=== PATIENT | male | born 2000 | race Caucasian/White ===

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

== ENCOUNTER 2021-02-15 21:20 | Emergency (ER) | payer MEDICAID, SELFPAY ==
[2021-02-15 21:21] VITALS: BP 150/101; PULSE 108; RESP 20; TEMP 37.1; O2SAT 99; BMI 34.3
--- NOTE | 2021-02-15 21:34 | XR_ITS ---
PROCEDURE INFORMATION: Exam: XR Left Wrist Exam date and time: 02/15/2021 9:34 PM Age: 21 years old Clinical indication: Injury or trauma; Fall; Work related; Blunt trauma (contusions or hematomas); Wrist; Left; Patient HX: Patient fell on concrete using a leaf blower working for [employer]. TECHNIQUE: Imaging protocol: XR Left wrist. Views: 3 or more views. COMPARISON: CR XR HAND LT MIN 3V 02/15/2021 9:33 PM FINDINGS: Bones/joints: Normal. Soft tissues: Normal. IMPRESSION: No acute findings.
--- NOTE | 2021-02-15 21:38 | XR_ITS ---
PROCEDURE INFORMATION: Exam: XR Left Forearm Exam date and time: 02/15/2021 9:38 PM Age: 21 years old Clinical indication: Injury or trauma; Fall; Work related; Blunt trauma (contusions or hematomas); Arm, lower; Left; Patient HX: Patient fell while using a leaf blower on concrete, patient works for [employer]. TECHNIQUE: Imaging protocol: XR Left forearm. Views: 2 views. COMPARISON: CR XR WRIST LT MIN 3V 02/15/2021 9:35 PM FINDINGS: Bones/joints: Normal. Soft tissues: Normal. IMPRESSION: No acute findings.
--- NOTE | 2021-02-15 21:39 | XR_ITS ---
PROCEDURE INFORMATION: Exam: XR Left Elbow Exam date and time: 02/15/2021 9:39 PM Age: 21 years old Clinical indication: Injury or trauma; Fall; Work related; Blunt trauma (contusions or hematomas); Elbow; Left; Patient HX: Patient fell while using a leaf blower on concrete. Patient works for [employer]. TECHNIQUE: Imaging protocol: XR Left elbow. Views: 3 or more views. COMPARISON: CR XR FOREARM LT 2V 02/15/2021 9:38 PM FINDINGS: Bones/joints: Normal. Soft tissues: Normal. IMPRESSION: No acute findings.
--- NOTE | 2021-02-15 21:39 | XR_ITS ---
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 Left hand pain. TECHNIQUE: Imaging protocol: XR Left hand. Views: 3 or more views. COMPARISON: No relevant prior studies available. FINDINGS: Bones/joints: Normal. Soft tissues: Normal. IMPRESSION: No acute findings.
--- NOTE | 2021-02-15 21:40 | HMH.EDFALL ---
ED Disposition Clinical Impression: Sprain of wrist, left Qualifiers: Encounter type: initial encounter Qualified Code(s): S63.502A - Unspecified sprain of left wrist, initial encounter Disposition: Home, Self-Care Condition on Discharge: Good Instructions: DI for Wrist Sprain Additional Instructions: ice and wear splint and see ortho Prescriptions: Meloxicam [Mobic 15 mg tab] 15 mg PO DAILY #10 tab Transmission Status: Pending to [id number] Referrals: Boyd Mesa [Primary Care Provider] - Gurinder Billingsley MD [Staff Physician] - Oh Medina JR, MD [Physician] - - Critical Care Critical Care Time: No Attestation: On 02/15/21, the high probability of a clinically significant, sudden or life threatening deterioration of the following system(s) required my full and direct attention, intervention and personal management. The time I documented below is in addition to time spent performing reported procedures but includes the following listed in this critical care notation. Medical Decision Making - Medical Records Medical records reviewed: Yes: I reviewed the patient's medical records. - Jeanmarie Inquiry Pt receiving controlled substance: No Vital Signs: 02/15/21 21:21 Temperature 98.7 F Temperature Source Oral Pulse Rate [Apical] 108 H Respiratory Rate 20 Blood Pressure [Right Arm] 150/101 H Blood Pressure Mean [Right Arm] 117 Blood Pressure Source [Right Arm] Automatic Cuff Blood Pressure Position [Right Arm] Sitting 02 Sat by Pulse Oximetry 99 Oxygen Delivery Method Room Air - Lab Data Lab results reviewed: Yes: I reviewed the patient's lab results. - Radiology Data #1 Image(s): Elbow, Forearm, Wrist, Hand Image Reviewed: Yes I have reviewed radiologist's interpretation Preliminary Findings: No Fracture Seen - CT Data CT Scan: Other (lt wrist ) Time Received: 23:[address] Reviewed: Yes: I have viewed the radiologist's interpretation Preliminary Findings: No Fracture Seen Medical Decision Narrative: sts and pain with dec rom but neg xrays - splint and see ortho- workman comp forms completed Fall HPI - General Chief Complaint: Fall Stated Complaint: [id number] fall left wrist inj Time Seen by Provider: 02/15/21 21:40 Mode of Arrival: Ambulatory Source of Information: Patient, Medical Record Limitations: No Limitations Description of Symptoms (Recalled from ER Triage Doc. by RN): Patient states that at roughly 1700 he tripped while working and landed on his left wrist. States that since the fall his wrist has been hurting up to his elbow. States that he did not hit his head. Denies any other injuries. - History of Present Illness HPI Narrative: tripped and fell at work with lt wrist injury complaint: fall Onset (ago): hour(s) Fall from: standing Fall witnessed: no Place fall occurred: work Loss of consciousness: none Prolonged down time: no Context: tripped/slipped Location of injury - extremities: Left: elbow, forearm, hand Severity: moderate Associated symptoms (after fall): denies - Related Data Previous Rx's Medication Instructions Recorded Albuterol Sulfate [Albuterol HFA 1 - 2 puffs IH Q4-6H PRN #1 inh 03/19/17 Inhaler] Ondansetron [Zofran 4mg ODT] 4 mg PO Q8H PRN #10 tab.rapdis 05/14/17 Nystatin [Nystatin Oint 100,000 1 applicatio TP BID 10 Days #1 tube 05/28/19 Units/GM 15GM] Nystatin [Nystatin Topical Powder 1 applicatio TP BID 10 Days #1 bot 05/28/19 30GM*] Meloxicam [Mobic 15 mg tab] 15 mg PO DAILY #10 tab 02/15/21 Allergies Allergy/AdvReac Type Severity Reaction Status Date / Time No Known Allergies Allergy Verified 05/02/17 16:07 [facility] History - Hepatitis A Screen Drug use history?: No High risk sexual behaviors?: No History of sexually transmitted infection?: No Currently employed?: No Childcare worker?: No Do you have indoor plumbing?: Yes Do you have electricity?: Yes Attestation stateme
--- NOTE | 2021-02-15 22:17 | CT_ITS ---
PROCEDURE INFORMATION: Exam: CT Left Upper Extremity Without Contrast, Wrist Exam date and time: 02/15/2021 10:17 PM Age: 21 years old Clinical indication: Pain; Wrist; Left; Additional info: Fall TECHNIQUE: Imaging protocol: CT of the Left upper extremity without contrast was performed. Exam focused on the wrist. 3D rendering (Not supervised by radiologist): MIP and/or 3D reconstructed images were created by the technologist. Radiation optimization: All CT scans at this facility use at least one of these dose optimization techniques: automated exposure control; mA and/or kV adjustment per patient size (includes targeted exams where dose is matched to clinical indication); or iterative reconstruction. COMPARISON: CR XR WRIST LT MIN 3V 02/15/2021 9:35 PM FINDINGS: Bones/joints: Examination is limited by technique. No visualized acute fracture or dislocation. Soft tissues: No radiopaque foreign body. IMPRESSION: Mildly limited examination without definite acute osseous abnormality. If there is concern for ligamentous or soft tissue injury, MRI would be more sensitive.
[2021-02-15 23:12] VITALS: BP 138/78; PULSE 78; RESP 20; TEMP 36.8; O2SAT 98
== END 2021-02-15 23:14 | disposition home or self-care (01) ==
PROVIDERS: Emergency Provider Emergency Medicine; PCP Pediatrics
DX: S63.502A Unspecified sprain of left wrist, initial encounter (principal); W01.0XXA Fall on same level from slipping, tripping and stumbling without subsequent striking against object, initial encounter; Y92.69 Other specified industrial and construction area as the place of occurrence of the external cause; Y99.0 Civilian activity done for income or pay
CPT/HCPCS: 73080; 73090; 73110; 73130; 73200; 99282

== ENCOUNTER 2021-08-14 13:39 | Emergency (ER) | payer MEDICAID, SELFPAY ==
[2021-08-14 13:39] VITALS: BP 163/87; PULSE 105; RESP 16; TEMP 36.8; O2SAT 98; BMI 34.2
[2021-08-14 14:00] VITALS: BP 117/62; PULSE 88; O2SAT 100
--- NOTE | 2021-08-14 14:28 | HMH.EDGENADL ---
ED Disposition Clinical Impression: Abscess of abdominal wall Disposition: Home, Self-Care Condition on Discharge: Fair Additional Instructions: Keflex and Bactrim as prescribed. Bristol as needed for pain. Follow-up with Dr. Hernandez, surgery, in his office Sunday or Sunday. Call tomorrow to make appointment. Return to the emergency department if worsening pain, fever, vomiting. Additional instructions for CONTROLLED SUBSTANCES: You have been prescribed a medication that is a controlled substance. Controlled substances include pain medications known as opiates and sedative nerve medications known as benzodiazepines. Tramadol, fioricet, and gabapentin are also controlled substances. Some common opiates include: Codeine (such as Tylenol #3) Hydrocodone (Vicodin, Lortab, Lorcet, Bristol) Oxycodone (Percocet, Percodan, Oxycodone, Oxy IR) Some common benzodiazepines include: Diazepam (Valium) Lorazepam (Ativan) Alprazolam (Xanax) Clonazepam (Klonopin) Oxazepam (Serax) All of these controlled substances are highly addictive and frequently abused. Misuse can and frequently does lead to addiction as well as overdose and . Medication should be stored in a locked cabinet or other secure storage unit. Do not store the medication in a motor vehicle. Short term supplies, 3 days or less, are prescribed because of the highly addictive nature of the medication. Any of the controlled substance medication NOT taken should be disposed of properly and NOT SAVED. The recommended method of disposing of unused medications is: Place the medicines in a sealable plastic bag. If the medicine is a solid, crush it or add water to dissolve it. Add something undesirable (cat litter, coffee grounds, etc.) Dispose of sealed bag in household trash Do not flush or pour unused medicines down a sink or drain. Controlled substances should not be shared, given away or sold. Because of the addictive nature and frequent abuse, these medications are sometimes stolen. These medications should be kept in a safe place where they cannot be stolen. Do not keep them in your car or purse. Lost or stolen prescriptions for controlled substances WILL NOT BE REFILLED in this emergency department, regardless of whether a police report was filed. Prescriptions: Hydrocod/Acet 5/325 mg [Bristol 5/325mg tablet] 1 tab PO Q6HP PRN #10 tab PRN Reason: Pain Transmission Status: Received by [id number] Sulfamethoxazole/Trimethoprim [Bactrim DS tablet] 1 each PO BID #20 tab Transmission Status: Received by [id number] cephALEXin [cephALEXin 500mg capsule*] 500 mg PO Q6H #40 cap Transmission Status: Received by [id number] Referrals: Boyd Mesa [Primary Care Provider] - - Critical Care Critical Care Time: No Attestation: On 08/14/21, the high probability of a clinically significant, sudden or life threatening deterioration of the following system(s) required my full and direct attention, intervention and personal management. The time I documented below is in addition to time spent performing reported procedures but includes the following listed in this critical care notation. Medical Decision Making - Medical Records Medical records reviewed: Yes: I reviewed the patient's medical records. MR Comment: Reviewed prior visit 05/28/2019, discharge from umbilicus. Also noted during that visit that the patient said he had a similar episode 2 years prior to that. - Jeanmarie Inquiry Pt receiving controlled substance: Yes Jeanmarie was queried for this patient: Yes Risks and benefits of using a controlled substance: were discussed with pt by me Vital Signs: 08/14/21 13:39 08/14/21 14:00 08/14/21 17:31 Temperature 98.3 F Temperature Source Oral Pulse Rate 88 78 Pulse Rate [Radial] 105 H Respiratory Rate 16 18 Blood Pressure 117/62 128/67 Blood Pressure [Right Arm] 163/87 H Blood Pressure Mean 80 89
--- NOTE | 2021-08-14 14:33 | CT_ITS ---
PROCEDURE INFORMATION: Exam: CT Abdomen And Pelvis With Contrast Exam date and time: 08/14/2021 2:44 PM Age: 21 years old Clinical indication: Mass, lump, or swelling; Periumbilical; Additional info: Abdominal wall abscess// umbilical area TECHNIQUE: Imaging protocol: Computed tomography of the abdomen and pelvis with contrast. Radiation optimization: All CT scans at this facility use at least one of these dose optimization techniques: automated exposure control; mA and/or kV adjustment per patient size (includes targeted exams where dose is matched to clinical indication); or iterative reconstruction. Contrast material: ISOVUE; Contrast volume: 75 ml; Contrast route: IV; COMPARISON: No relevant prior studies available. FINDINGS: Liver: Normal. No mass. Gallbladder and bile ducts: Normal. No calcified stones. No ductal dilation. Pancreas: Normal. No ductal dilation. Spleen: Normal. No splenomegaly. Adrenal glands: Normal. No mass. Kidneys and ureters: Normal. No hydronephrosis. Stomach and bowel: Unremarkable. No obstruction. No mucosal thickening. Appendix: No evidence of appendicitis. Intraperitoneal space: Unremarkable. No free air. No significant fluid collection. Vasculature: Unremarkable. No abdominal aortic aneurysm. Lymph nodes: Nonspecific bilateral inguinal lymph nodes. Urinary bladder: Unremarkable as visualized. Reproductive: Unremarkable as visualized. Bones/joints: Unremarkable. No acute fracture. Soft tissues: There is stranding of the subcutaneous fatty tissue in the periumbilical region. There is no evidence of a ventral wall defect. 3.7 cm by 2 cm low-density collection deep to the umbilicus. Rim enhancement is demonstrated best on sagittal and coronal imaging imaging sequences.The appearance is suggestive of abscess formation. Sagittal images demonstrate portions of the median umbilical ligament just deep to the rectus abdominus muscle. The possibility of infected urachal cyst should be considered. IMPRESSION: 3.7 cm x 2 cm low-density collection deep to the umbilicus. Peripheral rim enhancement with associated stranding of the periumbilical fatty tissues. Findings suggestive of abscess formation. The possibility of an infected urachal cyst should also be considered.
[2021-08-14 14:40] LABS: Basophils # 0.2 K/mm3 (0-0.2); Basophils % 1.5 % (0.1-2.0); Chloride 104 mmol/L (98-107); Eosinophils # 0.3 K/mm3 (0.0-0.4); Eosinophils % 2.4 % (0.1-12.0); Hematocrit 43.9 % (42.0-52.0); Hemoglobin 14.9 g/dL (14.1-18.0); Lymphocytes # 2.3 K/mm3 (0.7-4.5); Lymphocytes % 17.2 % (10-50); Mean Corpuscular HGB Conc 33.9 g/dL (31.8-35.4); Mean Corpuscular Volume 91.6 fl (80-94); Mean Platelet Volume 8.6 fl (7.4-10.4); Monocytes % 7.3 % (1.7-9.3); Neutrophils # 9.4 K/mm3 (1.8-7.8); Neutrophils % 71.5 % (37.0-80.0); Platelet Count 245 K/mm3 (142-424); Red Blood Count 4.79 M/mm3 (4.60-6.20); Sodium 139 mmol/L (136-145); White Blood Count 13.2 K/mm3 (4.8-10.8)
[2021-08-14 14:43] LABS: Lactic Acid 0.9 mmol/L (0.7-2.1)
[2021-08-14 15:13] LABS: Blood Urea Nitrogen 10 mg/dl (9-20); Creatinine Clearance Estimated 244 mL/min (50-200); Estimated Glomerular Filt Rate 122 ml/min (>60); GFR (African American) 148 ML/MIN (>60)
[2021-08-14 15:14] LABS: Alanine Aminotransferase 31 U/L (12-78); Albumin Level 4.4 g/dl (3.5-5.0); Albumin/Globulin Ratio 1.4 (1.1-1.8); Alkaline Phosphatase 78 U/L (38-126); Aspartate Amino Transferase 36 U/L (17-59); Carbon Dioxide 27 mmol/L (22.0-30.0); Globulin 3.1 g/dL (1.3-3.2); Total Protein,Serum 7.5 g/dl (6.3-8.2)
[2021-08-14 15:20] LABS: Calcium 9.1 mg/dl (8.4-10.2); Glucose 105 mg/dl (74-100)
[2021-08-14 16:54] LABS: Microscopic, Urine URINE MICROSCOPIC (MICROSCOPIC)
[2021-08-14 17:03] LABS: Appearance,Urine CLEAR (Clear); Bilirubin,Urine Negative (Negative); Blood, Urine Negative (Negative); Color,Urine YELLOW (Yellow); Glucose,Urine (UA) Negative (Negative); Ketones,Urine Negative (Negative); Leukocyte Esterase,Urine Negative (Negative); Nitrate,Urine Negative (Negative); PH,Urine 7.5 (5.0-8.5); Protein,Urine Negative (Negative); Specific Gravity, Urine 1.015 (1.005-1.030); Urobilinogen,Urine 0.2 EU/dl (0.2)
--- NOTE | 2021-08-14 17:14 | PC.NURSE ---
paged dr newby
--- NOTE | 2021-08-14 17:16 | PC.NURSE ---
GLORIA JORDAN on phone with LOPEZ
[2021-08-14 17:21] LABS: Bacteria,Urine Trace /lpf; Squamous Epithelial Cell,Urine Occasional #/hpf (0-5); WBC,Urine Occasional #/hpf (0-3)
[2021-08-14 17:31] VITALS: BP 128/67; PULSE 78; RESP 18; O2SAT 99
--- NOTE | 2021-08-14 18:37 | PC.NURSE ---
mother at bedside pt and mother updated on plan of care
[2021-08-14 20:00] VITALS: BP 150/82; PULSE 78; RESP 18; TEMP 37.2; O2SAT 99
== END 2021-08-14 20:00 | disposition home or self-care (01) ==
PROVIDERS: Emergency Provider Emergency Medicine; PCP Pediatrics
DX: L02.211 Cutaneous abscess of abdominal wall (principal)
CPT/HCPCS: 74177; 80053; 81001; 83605; 85025; 96365; 96366; 96375; 99284; J2405; J3370; Q9967

== ENCOUNTER → 2021-08-15 13:33 | Outpatient (CLI) | payer MEDICAID, SELFPAY | PROVIDERS: PCP Pediatrics; Visit Provider Surgery | DX: Z01.812 Encounter for preprocedural laboratory examination (principal); Z20.822 Contact with and (suspected) exposure to COVID-19; L02.211 Cutaneous abscess of abdominal wall | CPT/HCPCS: C9803; U0003; U0005 ==

== ENCOUNTER 2021-08-16 06:03 | Day surgery (SDC) | payer MEDICAID, SELFPAY ==
[2021-08-16] VITALS (12 sets, daily range): BP systolic 128–154; BP diastolic 69–84; PULSE 69–78; RESP 12–20; TEMP 36.3–36.5; O2SAT 93–100; BMI 35.9
--- NOTE | 2021-08-16 07:49 | HMH.ANESCL ---
[facility] Anesthesia Checklist - Structural Data Admitted From: Home Planned Operative Procedure/s: i/d umbilical abcess Consent for Planned Operative Procedure(s) Verified: Yes - Additional verifications Anesthesia Reactions: No Hx Blood Transfusions: No Blood Transfusion Reaction: No - Airway Assessment C-Spine Mobility Assessed: Yes TMJ Mobility Assessed: Yes Dentition: Good Dentition - Neurological Assessment Level of Consciousness: Awake, Alert, Appropriate - Anesthesia Plan Anesthesia Risk discussed: Yes Anesthesia Plan: Verified ASA Class: II Anesthesia Type: General [facility] History I have reviewed the patient's past medical history: Yes Medical History: Denies:: Cancer, Diabetes Mellitus Type 1, Diabetes Mellitus Type 2, MRSA, Seizures *Have you ever received a pneumonia vaccine?: No *Have you received a flu vaccine this season?: No Other Medical History: Denies: Blood Transfusion Reaction Anesthesia experience/problems:: none Laterality Cases: Bilateral: Myringotomy (Ear Tubes), Tonsillectomy Amputation: No Fractures: No - *Social History Last grade of school completed: High school graduate Smoking Status: Never smoker Tobacco Type: cigarettes Alcohol Intake: current Alcohol Intake Frequency:: holidays/special occasions only Substance Use Type: marijuana Last Used Substance: days (ago) *Occupational Status:: employed Housing: house Household Members: family *Travel in the last 8 weeks: None Family Hx:: No significant family history
--- NOTE | 2021-08-16 08:10 | P.OP_ITS ---
Date of procedure: 08/16/21 Pre-op Diagnosis:: Possible umbilical abscess Post-op Diagnosis:: Same Procedure performed:: Debridement of tissue at the umbilicus Surgeon:: Tez Hernandez MD MANAGER MARKETING:: Tru Washington Anesthesia: LMA Estimated blood loss (mL): 5 Clinical Note:: Patient is a 21-year-old male. He states that about 4 years ago he had some irritation at the umbilical area. It was felt that this may be a yeast infection . This was treated topically. Has not had any problems until recently. Several days ago he developed some burning pain at the umbilical area and periumbilical area. It was worse with movement. He was seen in the emergency department yesterday. He was found to have some significant discomfort in the periumbilical location. He underwent CT scan which revealed findings consistent with umbilical abscess with inflammatory changes. It was felt that this could be a urachal cyst. He was started on antibiotics and arr angements were made for outpatient surgical evaluation. Overnight he did have some drainage from the area. Operative findings:: Consistent with inflamed subcutaneous cyst Operative note:: Consent was obtained. Patient was taken to the operating room. General anesthesia was induced via LMA. Area was prepped and draped in the standard surgical fashion. Examination of the umbilical area revealed some rather prominent tissue with granulation in the deep umbilicus. Initially 18-gauge needle was inserted in this area to see if any residual fluid was able to be aspirated. There was no residual fluid. Elliptical incision was made around this. There was an area which was somewhat excoriated where he likely had drainage. This was probed. There was no evidence of any fluid or pus at this location. Therefore limited elliptical incision was made around the area of prominent inflamed tissue. Underlying this there were findings resembling pilonidal cyst. This was debrided using Metzenbaum dissection. This is consistent with inflamed granulation tissue. This was removed in a piecemeal fashion using Metzenbaum and sharp dissection. The wound was thoroughly probed. There was no evidence of any residual fluid collection. It was probed down to the fascia. The cavity was then debrided with a small curette. Wound was thoroughly irrigated. Local anesthetic was infiltrated. Wound was partially closed with several interrupted 3-0 chromic sutures. Clean dry sterile dressing was applied. Plan will be to change the dressing at least daily with sterile gauze for any drainage. He is to return to the office in 1 week. Likely will plan for a follow-up CT scan in several weeks to reassess the area. There is a possibility of recurrence as this seems to resemble findings and etiology consistent with pilonidal cyst although in the umbilical area. Condition: stable Disposition: PACU Specimens:: Debrided tissue Complications:: Not immediately apparent
--- NOTE | 2021-08-16 08:13 | P.PN_ITS ---
[facility] Anesthesia Record Part I Intake, IV Amount: 1,200 Estimated blood loss (mL): 0 Urine output (mL): 0 Blood Pressure: 144/72 SaO2: 95 Pulse Rate: 75 Respiratory Rate: 12 Temperature: 97.7 F Patient is:: Awake, Stable Stable to PACU at:: 08:10
--- NOTE | 2021-08-16 08:45 | SUR.PHASEI ---
0838 called and provided detailed report to Jonathan Renae RN 0840 transported via stretcher. vital signs stable. denies pain. left pt in stable condition with Jonathan Renae RN at bedside.
--- NOTE | 2021-08-17 09:39 | P.PN_ITS ---
[facility] Anesthesia Record Part II Discharge Time: 08:40 Destination: Home PACU nurse assessment reviewed?: Yes Patient Condition:: Good Anesthesia Complications:: None Swallowing reflex intact?: Yes Cyanosis?: No Blood Pressure: 149/80 Pulse Rate: 73 Temperature: 97.4 F Mental Status: Alert & Oriented Pain level:: 0 Nausea and/or vomitting:: None Intake, IV Amount: 0
[2021-08-17 09:40] VITALS: BP 149/80; PULSE 73; TEMP 36.3
== END 2021-08-16 09:35 | disposition home or self-care (01) ==
LOC: OR 06:04
PROVIDERS: PCP Pediatrics; Visit Provider Surgery
PROC: (CPT 11000; principal; 2021-08-16 07:30)
DX: L05.91 Pilonidal cyst without abscess (principal); L72.8 Other follicular cysts of the skin and subcutaneous tissue; Z79.899 Other long term (current) drug therapy
CPT/HCPCS: 11000; 96374; J2405

== ENCOUNTER 2022-06-26 08:33 | Emergency (ER) | payer MEDICAID, SELFPAY ==
[2022-06-26 08:35] VITALS: BP 121/42; PULSE 90; RESP 17; TEMP 36.8; O2SAT 98; BMI 33.3
--- NOTE | 2022-06-26 08:40 | PC.NURSE ---
DR LEONE AT BEDSIDE
--- NOTE | 2022-06-26 08:42 | PC.NURSE ---
GLORIA JORDAN at for pt prashanthal
--- NOTE | 2022-06-26 08:46 | CT_ITS ---
FINAL REPORT TECHNIQUE: After the administration of oral and intravenous contrast, axial images were obtained through the abdomen and pelvis by computed tomography. The study was performed with techniques to keep radiation dose as low as reasonably achievable, (ALARA). Individual dose reduction techniques using automated exposure control or adjustment of mA and/or kV according to the patient's size were employed. CLINICAL HISTORY: Mid abdominal pain COMPARISON: 08/14/2021 FINDINGS: Abdomen: The lung bases are clear. The liver parenchyma is homogeneous. The gallbladder is present. The spleen, pancreas, adrenals and kidneys appear unremarkable. The aorta is normal in caliber. Again seen is inflammatory reaction deep to the umbilicus in the anterior abdominal wall. This appears to have improved as compared to the prior exam. Central low-attenuation has improved. This focus measures 3.4 x 1.8 cm. No intrapelvic extension is seen. Pelvis: The appendix is normal. The urinary bladder is unremarkable. There is no free fluid or adenopathy. IMPRESSION: Redemonstration of inflammatory reaction deep to the umbilicus which has improved compared to the prior exam and may be related to resolving abscess. Reviewed, Interpreted and Dictated by Vamshi Domingo MD Transcribed by Yvette Sandoval Authenticated and [facility]
--- NOTE | 2022-06-26 08:48 | HMH.EDGENADL ---
Discharge Plan Disposition Patient Disposition: Home, Self-Care Prescriptions Prescriptions: New doxycycline hyclate 100 mg capsule 100 mg PO BID 14 Days Qty: 28 0RF hydrocodone-acetaminophen 5-325 mg tablet 1 tab PO Q6H PRN (Reason: pain) Qty: 10 0RF No Action sulfamethoxazole-trimethoprim 1 EACH tablet 1 each PO BID cephalexin 500 MG capsule 500 mg PO Q6H Referrals Follow up/Referrals: Boyd Mesa [Primary Care Provider] - See instructions Activity Restrictions/Add. Instructions Additional Instructions/Restrictions: Avoid exertion. Apply warm compresses to the affected area 4-5 times daily gently cleanse the umbilicus with half water half peroxide and apply antibiotic ointment. Return for worsening pain swelling or other concerns. Clinical Impressions Clinical Impression: Abdominal wall cellulitis Stand Alone Forms Stand Alone Forms: Work/School Release Instructions Patient Instructions: DI for Acute Abdominal Pain Discharge ED Provider: David De La Fuente General Adult HPI General Chief complaint: Abdominal Pain Stated complaint: stomach pain Time Seen by Provider: 06/26/22 08:40 History of Present Illness HPI narrative: The patient presents with a 5-day history of abdominal pain he describes pain as mild to moderate worse with movement. He denies associated fever, vomiting or diarrhea. In July 2021 he had an abdominal wall abscess requiring surgical incision and drainage and he states this feels similar to the symptoms he experienced at that time although with this episode there is been no drainage from the umbilicus as he previously experienced. Related Data Home Medications Medication Instructions Recorded Confirmed cephalexin 500 mg capsule 500 mg PO Q6H Infection 08/16/21 08/23/21 sulfamethoxazole 800 1 each PO BID Infection 08/16/21 08/23/21 mg-trimethoprim 160 mg tablet Previous Rx's Medication Instructions Recorded doxycycline hyclate 100 mg capsule 100 mg PO BID 14 days #28 caps 06/26/22 hydrocodone 5 mg-acetaminophen 325 1 tab PO Q6H PRN pain #10 tabs 06/26/22 mg tablet Allergies Allergy/AdvReac Type Severity Reaction Status Date / Time No Known Allergies Allergy Verified 08/23/21 10:05 [facility] Disclaimer: The information contained in this section may have been updated after the patient was seen, as this information can be updated by other users. Medical History (Updated 06/26/22 @ 11:17 by David De La Fuente MD) No significant past medical history Family History (Updated 06/26/22 @ 09:04 by Key Brock RN) Other No significant family history Social History (Updated 06/26/22 @ 09:04 by Key Brock RN) Smoking Status: Never smoker second hand exposure: No alcohol intake: current substance use type: marijuana current occupational status: employed Travel in the last 8 weeks: None household members: family housing: house current occupation: [employer] current occupational exposures/hazards: Yes ROS Obtained: Yes All systems reviewed & no additional complaints except as documented Physical Exam General General appearance: alert and in no apparent distress Head Head exam: atraumatic, normocephalic and normal inspection Eye Eye exam: Present normal appearance, PERRL and EOMI ENT ENT exam: Present normal exam, normal oropharynx, mucous membranes moist, TM's normal bilaterally and normal external ear exam Neck Neck exam: Present normal inspection, full ROM and trachea midline; Absent meningismus or lymphadenopathy Chest Chest inspection: Present normal inspection and symmetric chest wall rise; Absent tenderness Respiratory Respiratory exam: Present normal lung sounds bilaterally; Absent respiratory distress Cardiovascular Cardiovascular exam: Present regular rate and normal rhythm; Absent JVD Abdominal Exam Abdominal exam: Present tenderness (There is mild tenderness in the supraumbilical region) E
[2022-06-26 08:51] LABS: Microscopic, Urine URINE MICROSCOPIC (MICROSCOPIC)
[2022-06-26 09:00] LABS: Appearance,Urine CLEAR (Clear); Bilirubin,Urine Negative (Negative); Blood, Urine Negative (Negative); Color,Urine YELLOW (Yellow); Glucose,Urine (UA) Negative (Negative); Ketones,Urine Negative (Negative); Leukocyte Esterase,Urine Negative (Negative); Nitrate,Urine Negative (Negative); Protein,Urine Negative (Negative); Specific Gravity, Urine 1.025 (1.005-1.030); Urobilinogen,Urine 0.2 EU/dl (0.2)
[2022-06-26 09:02] LABS: Basophils # 0.1 K/mm3 (0-0.2); Basophils % 0.5 % (0.1-2.0); Eosinophils # 0.3 K/mm3 (0.0-0.4); Eosinophils % 2.7 % (0.1-12.0); Hematocrit 45.8 % (42.0-52.0); Hemoglobin 15.3 g/dL (14.1-18.0); Lymphocytes # 2.1 K/mm3 (0.7-4.5); Lymphocytes % 18.2 % (10-50); Mean Corpuscular HGB Conc 33.3 g/dL (31.8-35.4); Mean Corpuscular Hemoglobin 30.1 pg (27.0-31.2); Mean Corpuscular Volume 90.3 fl (80-94); Mean Platelet Volume 7.8 fl (7.4-10.4); Monocytes # 0.7 K/mm3 (0.1-1.0); Monocytes % 6.1 % (1.7-9.3); Neutrophils # 8.6 K/mm3 (1.8-7.8); Neutrophils % 72.5 % (37.0-80.0); Platelet Count 265 K/mm3 (142-424); Red Blood Count 5.07 M/mm3 (4.60-6.20); Red Cell Distribution Width 12.6 % (11.5-17.5); White Blood Count 11.8 K/mm3 (4.8-10.8)
[2022-06-26 09:12] LABS: Chloride 103 mmol/L (98-107); Potassium 4.4 mmoL/L (3.5-5.1); Sodium 139 mmol/L (136-145)
[2022-06-26 09:15] LABS: Alanine Aminotransferase 31 U/L (12-78); Albumin Level 4.5 g/dl (3.5-5.0); Albumin/Globulin Ratio 1.4 (1.1-1.8); Alkaline Phosphatase 73 U/L (38-126); Anion Gap 11.4 mEq/L (5-15); Aspartate Amino Transferase 28 U/L (17-59); Bilirubin,Total 0.4 mg/dl (0.2-1.3); Blood Urea Nitrogen 14 mg/dl (9-20); Carbon Dioxide 29 mmol/L (22.0-30.0); Creatinine Clearance Estimated 242 mL/min (50-200); Estimated Glomerular Filt Rate 121 ml/min (>60); GFR (African American) 146 ML/MIN (>60); Globulin 3.3 g/dL (1.3-3.2); Glucose 98 mg/dl (74-100); Lipase 84 U/L (23-300); Total Protein,Serum 7.8 g/dl (6.3-8.2)
--- NOTE | 2022-06-26 09:18 | PC.NURSE ---
VERONIKA Craig called radiology to let them know about CT scan order
[2022-06-26 09:21] LABS: Bacteria,Urine Trace /lpf; Squamous Epithelial Cell,Urine Occasional #/hpf (0-5)
--- NOTE | 2022-06-26 09:23 | PC.NURSE ---
PT UPDATED AT THIS TIME. CALL LIGHT WITHIN REACH. NO NEEDS VOICED
--- NOTE | 2022-06-26 09:39 | PC.NURSE ---
pt to ct at this time
--- NOTE | 2022-06-26 09:48 | PC.NURSE ---
PT RETURNED FROM CT
[2022-06-26 10:00] VITALS: BP 112/67; PULSE 74; O2SAT 97
--- NOTE | 2022-06-26 10:02 | PC.NURSE ---
DR LEONE AT BEDSIDE TO UPDATE PT AND FAMILY
[2022-06-26 10:30] VITALS: BP 119/59; PULSE 86; O2SAT 98
--- NOTE | 2022-06-26 10:41 | PC.NURSE ---
contacted rad to check on status of CT report.
--- NOTE | 2022-06-26 10:57 | PC.NURSE ---
ROUNDED ON PT, UPDATED ON POC. NO NEEDS AT THIS TIME
[2022-06-26 11:00] VITALS: BP 113/69; PULSE 78; O2SAT 98
--- NOTE | 2022-06-26 11:04 | PC.NURSE ---
Paged Dr. Hernandez to call ER MD lucia
--- NOTE | 2022-06-26 11:06 | PC.NURSE ---
DR LEONE AT BEDSIDE TO UPDATE PT
--- NOTE | 2022-06-26 11:14 | PC.NURSE ---
Dr. De La Fuente speaking with Dr. Hernandez
[2022-06-26 11:24] VITALS: BP 113/69; PULSE 78; RESP 17; TEMP 36.8; O2SAT 98
== END 2022-06-26 11:25 | disposition home or self-care (01) ==
PROVIDERS: Emergency Provider Emergency Medicine; PCP Pediatrics
DX: L03.311 Cellulitis of abdominal wall (principal); R10.9 Unspecified abdominal pain
CPT/HCPCS: 74177; 80053; 81001; 83690; 85025; 99284; 99285; Q9967

== ENCOUNTER → 2022-06-29 09:23 | Outpatient (CLI) | payer MEDICAID, SELFPAY ==
[2022-06-29 09:48] LABS: Basophils % 0.5 % (0.1-2.0); Eosinophils # 0.2 K/mm3 (0.0-0.4); Eosinophils % 2.8 % (0.1-12.0); Hemoglobin 14.3 g/dL (14.1-18.0); Lymphocytes % 22.7 % (10-50); Mean Corpuscular HGB Conc 32.4 g/dL (31.8-35.4); Mean Corpuscular Hemoglobin 29.9 pg (27.0-31.2); Mean Corpuscular Volume 92.1 fl (80-94); Mean Platelet Volume 7.4 fl (7.4-10.4); Monocytes # 0.6 K/mm3 (0.1-1.0); Monocytes % 7.4 % (1.7-9.3); Neutrophils # 5.7 K/mm3 (1.8-7.8); Neutrophils % 66.6 % (37.0-80.0); Platelet Count 236 K/mm3 (142-424); Red Blood Count 4.78 M/mm3 (4.60-6.20); Red Cell Distribution Width 12.5 % (11.5-17.5); White Blood Count 8.6 K/mm3 (4.8-10.8)
[2022-06-29 10:31] LABS: Chloride 97 mmol/L (98-107)
[2022-06-29 10:32] LABS: Potassium 4.1 mmoL/L (3.5-5.1); Sodium 139 mmol/L (136-145)
[2022-06-29 10:35] LABS: Anion Gap 16.1 mEq/L (5-15); Blood Urea Nitrogen 15 mg/dl (9-20); Calcium 9.3 mg/dl (8.4-10.2); Carbon Dioxide 30 mmol/L (22.0-30.0); Estimated Glomerular Filt Rate 121 ml/min (>60); GFR (African American) 146 ML/MIN (>60); Glucose 92 mg/dl (74-100)
== END ==
PROVIDERS: PCP Pediatrics; Visit Provider Surgery
DX: L02.211 Cutaneous abscess of abdominal wall (principal)
CPT/HCPCS: 36415; 80048; 85025

== ENCOUNTER 2023-01-27 07:56 | Emergency (ER) | payer MEDICAID, SELFPAY ==
[2023-01-27 07:57] VITALS: BP 128/76; PULSE 109; RESP 16; TEMP 36.9; O2SAT 98; BMI 31.6
[2023-01-27 08:02] VITALS: BP 128/76; PULSE 109; RESP 18; O2SAT 95
--- NOTE | 2023-01-27 08:14 | PC.NURSE ---
er at bedside
--- NOTE | 2023-01-27 08:14 | PC.NURSE ---
DR PIEDRA AT BEDSIDE
--- NOTE | 2023-01-27 08:24 | CT_ITS ---
PROCEDURE INFORMATION: Exam: CT Abdomen And Pelvis With Contrast Exam date and time: 01/27/2023 9:35 AM Age: 22 years old Clinical indication: Other: Abdominal wall pain; Additional info: Abd wall pain TECHNIQUE: Imaging protocol: Computed tomography of the abdomen and pelvis with contrast. Radiation optimization: All CT scans at this facility use at least one of these dose optimization techniques: automated exposure control; mA and/or kV adjustment per patient size (includes targeted exams where dose is matched to clinical indication); or iterative reconstruction. Contrast material: ISOVUE; Contrast volume: 75 ml; Contrast route: IV; REPORTING DATA: Count of CT and Cardiac NM exams in prior 12 months: This patient has received [address] and 0 known cardiac nuclear medicine studies in the 12 months prior to the current study. COMPARISON: CT ABDOMEN PELVIS W CON 06/26/2022 9:43 AM FINDINGS: Liver: Hepatomegaly measuring 20 cm in craniocaudal dimension. Gallbladder and bile ducts: Normal. No calcified stones. No ductal dilation. Pancreas: Normal. No ductal dilation. Spleen: Normal. No splenomegaly. Adrenal glands: Normal. No mass. Kidneys and ureters: Normal. No hydronephrosis. Stomach and bowel: Unremarkable. No obstruction. No mucosal thickening. Appendix: No evidence of appendicitis. Intraperitoneal space: Unremarkable. No free air. No significant fluid collection. Vasculature: Unremarkable. No abdominal aortic aneurysm. Lymph nodes: Unremarkable. No enlarged lymph nodes. Urinary bladder: Unremarkable as visualized. Reproductive: Unremarkable as visualized. Bones/joints: Unremarkable. No acute fracture. Soft tissues: Gynecomastia. Mild inflammatory fat stranding surrounding the umbilicus. No abscess. No hernia. IMPRESSION: 1. Mild inflammatory fat stranding surrounding the umbilicus. No abscess. No hernia. 2. Gynecomastia. 3. Hepatomegaly measuring 20 cm in craniocaudal dimension.
--- NOTE | 2023-01-27 08:25 | HMH.EDGENADL ---
Discharge Plan Disposition Patient Disposition: Home, Self-Care Prescriptions Prescriptions: New cephalexin 500 mg capsule 500 mg PO QID 7 Days Qty: 28 0RF No Action hydrocodone-acetaminophen 5-325 mg tablet 1 tab PO Q6H PRN (Reason: pain) Qty: 10 0RF doxycycline hyclate 100 mg capsule 100 mg PO BID Referrals Follow up/Referrals: Boyd Mesa [Primary Care Provider] - See instructions Activity Restrictions/Add. Instructions Additional Instructions/Restrictions: Please take antibiotics as prescribed. Please follow-up with your primary care provider. Please return to the emergency department if you develop any new or worsening symptoms or become concerned for your health. Clinical Impressions Clinical Impression: Cellulitis of umbilicus Instructions Patient Instructions: DI for Acute Abdominal Pain Discharge ED Provider: Nabor Rose General Adult HPI General Chief complaint: Abdominal Pain Stated complaint: stomach pain Time Seen by Provider: 01/27/23 07:59 Mode of Arrival: Ambulatory Source of Information: Patient Limitations: No Limitations Description of Symptoms (Recalled from ER Triage Doc. by RN): PT REPORTS RECURRING UMBILICAL ABDOMINAL PAIN, STARTED INTERMITTENTLY ABOUT 2-3 WEEKS AGO. HX OF ABDOMINAL WALL ABSCESS History of Present Illness HPI narrative: 22-year-old male, history of prior infected subcutaneous cyst near the umbilicus presents with recurrent symptoms. Previously drained by Dr. Hernandez a couple of years ago. Symptoms have been present again for the last couple of weeks. He reports focal tenderness in the periumbilical and epigastric region. No purulent drainage. No fevers. Related Data Home Medications Medication Instructions Recorded Confirmed doxycycline hyclate 100 mg capsule 100 mg PO BID antibiotic 06/30/22 Previous Rx's Medication Instructions Recorded hydrocodone 5 mg-acetaminophen 325 1 tab PO Q6H PRN pain #10 tabs 06/26/22 mg tablet cephalexin 500 mg capsule 500 mg PO QID 7 days #28 caps 01/27/23 Allergies Allergy/AdvReac Type Severity Reaction Status Date / Time No Known Allergies Allergy Verified 06/29/22 08:59 [facility] Disclaimer: The information contained in this section may have been updated after the patient was seen, as this information can be updated by other users. Medical History (Updated 01/27/23 @ 10:47 by Nabor Rose MD) No significant past medical history Surgical History History of incision and drainage History of placement of ear tubes History of tonsillectomy and adenoidectomy Family History Other No significant family history Social History Smoking Status: Smoker, status unknown tobacco type: cigarettes second hand exposure: No alcohol intake: current substance use type: marijuana current occupational status: employed Travel in the last 8 weeks: None household members: family housing: house current occupation: [employer] current occupational exposures/hazards: Yes ROS Obtained: Yes All systems reviewed & no additional complaints except as documented Physical Exam General General appearance: alert and in no apparent distress Head Head exam: atraumatic and normocephalic Eye Eye exam: Present normal appearance, PERRL and EOMI ENT ENT exam: Present normal oropharynx and normal external ear exam Neck Neck exam: Present normal inspection and full ROM Chest Chest inspection: Present normal inspection and symmetric chest wall rise; Absent tenderness Respiratory Respiratory exam: Present normal lung sounds bilaterally; Absent respiratory distress Cardiovascular Cardiovascular exam: Present regular rate and normal rhythm Abdominal Exam Abdominal exam: Present soft and tenderness (Focal tenderness of the umb
[2023-01-27 08:30] VITALS: BP 123/74; PULSE 89; O2SAT 99
[2023-01-27 08:59] LABS: Basophils % 0.6 % (0.1-2.0); Eosinophils # 0.2 K/mm3 (0.0-0.4); Eosinophils % 2.9 % (0.1-12.0); Hematocrit 44.2 % (42.0-52.0); Hemoglobin 14.8 g/dL (14.1-18.0); Lymphocytes # 2.2 K/mm3 (0.7-4.5); Lymphocytes % 28.7 % (10-50); Mean Corpuscular HGB Conc 33.6 g/dL (31.8-35.4); Mean Corpuscular Hemoglobin 31.1 pg (27.0-31.2); Mean Corpuscular Volume 92.5 fl (80-94); Mean Platelet Volume 8.1 fl (7.4-10.4); Monocytes # 0.5 K/mm3 (0.1-1.0); Monocytes % 6.6 % (1.7-9.3); Neutrophils # 4.6 K/mm3 (1.8-7.8); Neutrophils % 61.3 % (37.0-80.0); Platelet Count 232 K/mm3 (142-424); Red Blood Count 4.78 M/mm3 (4.60-6.20); Red Cell Distribution Width 12.8 % (11.5-17.5); White Blood Count 7.5 K/mm3 (4.8-10.8)
[2023-01-27 09:01] LABS: Chloride 105 mmol/L (98-107)
[2023-01-27 09:02] LABS: Potassium 4.3 mmoL/L (3.5-5.1); Sodium 140 mmol/L (136-145)
[2023-01-27 09:04] LABS: Alanine Aminotransferase 37 U/L (12-78); Alkaline Phosphatase 66 U/L (38-126); Anion Gap 10.3 mEq/L (5-15); Aspartate Amino Transferase 35 U/L (17-59); Bilirubin,Total 0.6 mg/dl (0.2-1.3); Blood Urea Nitrogen 12 mg/dl (9-20); Carbon Dioxide 29 mmol/L (22.0-30.0); Creatinine Clearance Estimated 229 mL/min (50-200); Estimated Glomerular Filt Rate 121 ml/min (>60); GFR (African American) 146 ML/MIN (>60)
[2023-01-27 09:05] LABS: Albumin Level 4.8 g/dl (3.5-5.0); Albumin/Globulin Ratio 1.5 (1.1-1.8); Globulin 3.1 g/dL (1.3-3.2); Glucose 101 mg/dl (74-100); Lipase 58 U/L (23-300); Total Protein,Serum 7.9 g/dl (6.3-8.2)
--- NOTE | 2023-01-27 09:32 | PC.NURSE ---
PT TO CT
--- NOTE | 2023-01-27 09:42 | PC.NURSE ---
PT RETURNED FROM CT
--- NOTE | 2023-01-27 09:42 | PC.NURSE ---
pt returned from radiology via wheelchair
--- NOTE | 2023-01-27 09:51 | PC.NURSE ---
DR PIEDRA AT BEDSIDE TO UPDATE PT AND FAMILY
[2023-01-27 10:01] VITALS: BP 112/61; PULSE 73; O2SAT 100
--- NOTE | 2023-01-27 10:01 | PC.NURSE ---
Rounded on pt. No needs or complaints voiced at this time. Call light remains within reach.
[2023-01-27 10:30] VITALS: BP 117/70; PULSE 70; O2SAT 99
--- NOTE | 2023-01-27 10:38 | PC.NURSE ---
DR PIEDRA AT BEDSIDE TO UPDATE PT AND MOTHER OF CT RESULTS
[2023-01-27 10:48] VITALS: BP 117/70; PULSE 78; RESP 18; TEMP 36.9; O2SAT 100
== END 2023-01-27 10:50 | disposition home or self-care (01) ==
PROVIDERS: Emergency Provider Emergency Medicine; PCP Pediatrics
DX: L03.316 Cellulitis of umbilicus (principal); R10.33 Periumbilical pain
CPT/HCPCS: 74177; 80053; 83690; 85025; 99285; Q9967